=== PATIENT | male | born 1995 | race Hispanic/Latino ===

== ENCOUNTER 2021-12-30 07:08 | Day surgery (SDC) | payer OTHER ==
[2021-12-29 15:16] LABS: BASOPHILS % (AUTO) 0.6 % (0.0-5.0); EOSINOPHILS % (AUTO) 0.6 % (0.0-8.0); HEMATOCRIT 46.2 % (42-54); LYMPHOCYTES % (AUTO) 33.9 % (21.0-51.0); MEAN CORPUSCULAR HEMOGLOBIN 29.7 pg (27.0-33.0); MEAN CORPUSCULAR HGB CONC 34.2 g/dL (32.0-36.0); MEAN CORPUSCULAR VOLUME 86.8 fL (79-99); MONOCYTES % (AUTO) 7.5 % (3.0-13.0); NEUTROPHILS % (AUTO) 57.1 % (40.0-77.0); PLATELET COUNT (AUTO) 279 K/uL (130-400); RED BLOOD CELL COUNT(AUTO) 5.32 MIL/uL (4.50-6.20); RED CELL DISTRIBUTION WIDTH 12.9 % (11.0-15.5); WHITE BLOOD COUNT (AUTO) 8.8 K/uL (4.8-10.8)
[2021-12-29 15:26] LABS: INR 0.97 (0.85-1.15); PROTHROMBIN TIME 10.6 SEC (9.6-11.6)
[2021-12-29 15:27] VITALS: BP 125/78
[2021-12-29 15:27] LABS: PARTIAL THROMBOPLASTIN TIME 31.3 SEC (26.3-35.5)
[2021-12-29 15:30] LABS: POTASSIUM 4.3 mmol/L (3.5-5.1)
[2021-12-30] VITALS (8 sets, daily range): BP systolic 109–126; BP diastolic 56–74
[~2021-12-30] VITALS: Ht 165.1 cm; Wt 64.4 kg
[~2021-12-30 07:08] MED LIST: FLEC50TA3 PO
[2021-12-30] MEDS ORDERED: 0.9%NACL 1000ML 1,000 ML IV ONE (07:34)
[2021-12-30] MEDS ORDERED: MIDAZOLAM HCL 1 MG/ML 2ML VIAL ONE ×2 (07:42→09:54)
[2021-12-30] MEDS ORDERED: HEPARIN 10,000 UNIT/10ML (1,000 UNIT/ML) VIAL ONE (07:43)
[2021-12-30] MEDS ORDERED: LIDOCAINE HCL 1% 20 ML VIAL ONE ×2 (07:43→08:32)
[2021-12-30] MEDS ORDERED: MEPERIDINE-PF 25 MG/ML SYG ONE ×4 (07:43→10:09)
[2021-12-30] MEDS ORDERED: FENTANYL CITRATE PF 50 MCG/1 ML 2ML VIAL ONE (09:33)
[2021-12-30] MEDS ORDERED: ISOPROTERENOL HCL 0.2 MG/ML AMP/VIAL/BAG ONE (10:37)
== END 2021-12-30 15:15 | disposition home or self-care (01) ==
LOC: DAH 07:08
PROVIDERS: ATTEND Internal Medicine Cardiovascular Disease
DX: I47.1 Supraventricular tachycardia (principal); F17.200 Nicotine dependence, unspecified, uncomplicated; Z98.890 Other specified postprocedural states; Z82.49 Family history of ischemic heart disease and other diseases of the circulatory system; Z82.3 Family history of stroke; Z79.899 Other long term (current) drug therapy; Z79.01 Long term (current) use of anticoagulants
CPT/HCPCS: 80048; 85025; 85610; 85730; 36415; 71045; 93005; 93620; 93623; 93621; C1894 ×5; C1730 ×4; J3010; J7030; J3490; J1644 ×2; J2250 ×2; J2175 ×4; A4215; A4222; A4221; A4663; A4216; A4606; A4223 ×3; 99156; 99157